=== PATIENT | male | born 1960 | race Caucasian/White ===

== ENCOUNTER 2023-04-10 23:39 | Emergency (ER) | payer MEDICAID, SELFPAY ==
--- NOTE | ~2023-04-10 | CT_ITS ---
EXAMINATION: CT HEAD WITHOUT CONTRAST CLINICAL INFORMATION: Amnesia COMPARISON: None available. TECHNIQUE: Contiguous axial imaging was performed from the skull base to vertex without intravenous administration of contrast. This CT examination was performed using dose optimization techniques as appropriate, variously including the following: *Automated exposure control *Adjustment of mA and/or kV according to patient size (this includes techniques or standardized protocols for targeted exams where dose is matched to indication/reason for exam; i.e. extremities or head) *Use of iterative reconstruction technique DLP: 754 mGy-cm FINDINGS: There is no evidence of acute intracranial hemorrhage or territorial infarction. No abnormal mass-effect or midline shift is seen. Daniel to white matter differentiation is well preserved. No extra-axial fluid collections are identified. The ventricles are normal in size. Mild volume loss is noted. The osseous structures and soft tissues are normal. Small mucous retention cyst in the right maxillary sinus. Slight mucosal thickening of the frontal sinuses. The mastoid air cells are well-aerated. CT/CT head/brain wo IV con IMPRESSION: No acute intracranial pathology.
[2023-04-10 23:59] VITALS: BP 148/103; PULSE 107; RESP 20; TEMP 37; O2SAT 95; BMI 29.2
[2023-04-11] VITALS (10 sets, daily range): BP systolic 104–138; BP diastolic 68–97; PULSE 54–107; RESP 15–20; TEMP 36.6–37.3; O2SAT 94–97
[2023-04-11 00:46] LABS: Amphetamine Screen Urine Not Detected (Not Detect); Barbiturates, Urine Not Detected (Not Detect); Benzodiazepines Screen Urine Not Detected (Not Detect); Cannabinoid Screen Urine Not Detected (Not Detect); Cocaine Screen Urine POSITIVE (Not Detect); Fentanyl, urine Not Detected (Not Detect); Opiate Screen Urine Not Detected (Not Detect); Phencyclidine Screen Urine Not Detected (Not Detect)
--- NOTE | 2023-04-11 02:23 | ECG_ITS ---
Test Reason : CHEST PAIN Blood Pressure : / mmHG Vent. Rate : 067 BPM Atrial Rate : 067 BPM P-R Int : 190 ms QRS Dur : 092 ms QT Int : 428 ms P-R-T Axes : 074 029 025 degrees QTc Int : 452 ms Normal sinus rhythm Inferior infarct , age undetermined Abnormal ECG No previous ECGs available Referred By: Jasper Mercedes Electronically Signed By:Ulises Kent
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
[2023-04-11 02:53] LABS: Basophils Absolute Auto 0.1 X10*3/uL (0.0-0.2); Basophils Percent Auto 1.4 % (0-2); Eosinophils Absolute Auto 0.1 X10*3/uL (0.0-0.4); Eosinophils Percent Auto 2.5 % (0-4); Hemoglobin 14.8 g/dl (14.0-18.0); Imm Gran Abs Auto 0.02 X10*3/uL (0.00-0.03); Imm Gran Pct Auto 0.4 % (0.0-0.4); Lymphocytes Absolute Auto 1.9 X10*3/uL (1.2-4.9); Lymphocytes Percent Auto 33.9 % (20-40); MANUAL DIFF FLAG SCAN; Mean Corpuscular HGB Conc 35.2 g/dl (31.0-36.0); Mean Corpuscular Hemoglobin 31.7 pg (27.0-33.0); Mean Corpuscular Volume 89.9 fL (80.0-98.0); Mean Platelet Volume 9.4 fL (9.4-12.4); Monocytes Absolute Auto 0.7 X10*3/uL (0.1-1.2); Monocytes Percent Auto 13.1 % (2-11); Neutrophils Absolute Auto 2.7 x10*3/uL (2.0-8.3); Neutrophils Percent Auto 48.7 % (45-73); Platelet Count 230 X10*3/uL (160-400); Red Blood Count 4.67 X10*6/uL (4.60-5.80); Red Cell Distribution Width 12.1 % (11.0-16.0); SCAN SMEAR FLAG 1; White Blood Count 5.6 X10*3/uL (4.8-10.8)
[2023-04-11 03:10] LABS: Alanine Aminotransferase 192 U/L (0-40); Albumin Level 3.7 g/dL (3.5-5.0); Alkaline Phosphatase 91 U/L (39-117); Anion Gap 12 (12-20); Aspartate Amino Transferase 74 U/L (5-37); Bilirubin Direct 0.5 mg/dL (0.0-0.5); Bilirubin Total 1.1 mg/dL (0.0-1.0); Blood Urea Nitrogen 8 mg/dL (9-16); Carbon Dioxide 26 mmol/L (22-29); Chloride 103 mmol/L (96-108); Creatinine Clr Calc Pharmacy 108.6; Estimated Glomerular Filt Rate > 60; Glucose Random 175 mg/dL (60-115); Lipase 48 U/L (8-78); Potassium 2.9 mmol/L (3.3-5.1); Sodium 138 mmol/L (135-145); Total Protein 7.3 g/dL (6.5-8.0)
[2023-04-11 03:13] LABS: SLIDE REVIEW VERIFIED
[2023-04-11 03:21] LABS: Troponin-I High Sensitivity < 2.7 ng/L (<3.5-35.0)
[2023-04-11] MEDS: Potassium Chloride Packet 20 MEQ PACKET 40 MEQ PO (05:44)
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
[2023-04-11 13:08] LABS: Amphetamine Screen Urine Not Detected (Not Detect); Barbiturates, Urine Not Detected (Not Detect); Benzodiazepines Screen Urine Not Detected (Not Detect); Cannabinoid Screen Urine Not Detected (Not Detect); Cocaine Screen Urine POSITIVE (Not Detect); Fentanyl, urine POSITIVE (Not Detect); Opiate Screen Urine Not Detected (Not Detect); Phencyclidine Screen Urine Not Detected (Not Detect)
--- NOTE | 2023-04-11 16:03 | PC.NURSE ---
Care team requesting U/A be done prior to their evaluation, patient made aware and is attempting to give sample
[2023-04-11 16:52] LABS: Appearance Urine Clear; Bacteria Urine None Seen (None Seen); Color Urine Dark Yellow; Glucose Urine UA 100 mg/dL (Negative); Hyaline Casts Urine 0-2 /LPF (0-2); Leukocyte Esterase Urine Negative (Negative); Nitrite Urine Negative (Negative); RBC Urine 0-2 /HPF (0-2); Squamous Epithelial Cell Urine 0-2 /HPF (0-2); Urine Blood Negative (Negative); Urine Ketones Trace mg/dL (Negative); Urine Protein Trace mg/dL (Neg-Trace); WBC Urine 0-5 /HPF (0-5)
--- NOTE | 2023-04-11 19:29 | MHC.RECOVSUP ---
Met with pt in ED14 who is here for LAYNE. Pt informs he only does cocaine on occasion when he is seeing a specific girl. Pt reports IV cocaine use 4 times in the past month but does not like doing it and only does it so she will stay around, going on to say he never craves it and will not get it unless she is with him. T/W and pt discussed self care and harm reduction as well as the importance of therapy. Pt working with Audrey to get into PHP.
--- NOTE | 2023-04-11 19:32 | PC.NURSE ---
Assumed care of pt. Pt lying on stretcher, no acute distress at this time. VSS.
[2023-04-11] MEDS: Naloxone HCl Nasal TAKE HOME 4 MG SPRAY 8 MG NOSTRILALT (22:10)
[2023-04-11] MEDS: Potassium Bicarbonate/Cit AC 25 MEQ TABLET.EFF PO (23:21)
--- NOTE | 2023-04-12 08:49 | MHC.CARE ---
T/w filled out the [facility] form and faxed it along with the Care Assessment to Marysol Kwon at [phone]. Admissions Team will follow up with PHP to check on availability.
--- NOTE | 2023-04-13 09:01 | MHC.CARE ---
RAD team followed up with Marysol @[facility] to confirm that his referral was received. She stated that she called and and left a but has not received a call back as of yet. Referral is now completed.
== END 2023-04-12 00:02 | disposition home or self-care (01) ==
PROVIDERS: Emergency Medicine; Emergency Provider Emergency Medicine
DX: F19.10 Other psychoactive substance abuse, uncomplicated (principal); E87.6 Hypokalemia
CPT/HCPCS: 36415; 70450; 80048; 80076; 80307; 81001; 83690; 84484; 85025; 93005; 99285; S9485

== ENCOUNTER → 2023-04-11 02:23 | Outpatient (BNV) | payer MEDICAID, SELFPAY | PROVIDERS: Emergency Provider Emergency Medicine; Visit Provider Internal Medicine Cardiovascular Disease | DX: R94.31 Abnormal electrocardiogram [ECG] [EKG] (principal) | CPT/HCPCS: 93010 ==

== ENCOUNTER 2023-09-17 16:44 | Emergency (ER) | payer MEDICAID, SELFPAY ==
[2023-09-17 16:49] VITALS: BP 159/94; PULSE 72; RESP 18; TEMP 36.4; O2SAT 96; BMI 30.6
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
[2023-09-17 17:29] LABS: MANUAL DIFF FLAG NO
[2023-09-17 17:30] LABS: Basophils Percent Auto 0.9 % (0-2); Eosinophils Absolute Auto 0.1 X10*3/uL (0.0-0.4); Eosinophils Percent Auto 1.3 % (0-4); Hematocrit 44.1 % (42.0-52.0); Hemoglobin 15.6 g/dl (14.0-18.0); Imm Gran Abs Auto 0.01 X10*3/uL (0.00-0.03); Imm Gran Pct Auto 0.2 % (0.0-0.4); Lymphocytes Absolute Auto 2.4 X10*3/uL (1.2-4.9); Lymphocytes Percent Auto 52.7 % (20-40); Mean Corpuscular HGB Conc 35.4 g/dl (31.0-36.0); Mean Corpuscular Hemoglobin 31.1 pg (27.0-33.0); Mean Platelet Volume 9.4 fL (9.4-12.4); Monocytes Absolute Auto 0.5 X10*3/uL (0.1-1.2); Monocytes Percent Auto 9.9 % (2-11); Neutrophils Absolute Auto 1.6 x10*3/uL (2.0-8.3); Platelet Count 189 X10*3/uL (160-400); Red Blood Count 5.01 X10*6/uL (4.60-5.80); Red Cell Distribution Width 13.2 % (11.0-16.0); White Blood Count 4.6 X10*3/uL (4.8-10.8)
[2023-09-17 17:31] LABS: Appearance Urine Clear; Color Urine Yellow; Glucose Urine UA Negative (Negative); Leukocyte Esterase Urine Negative (Negative); Nitrite Urine Negative (Negative); PH 5.5 (5.0-9.0); Specific Gravity - Urine >= 1.030 (1.005-1.025); Urine Blood Negative (Negative); Urine Ketones Negative (Negative); Urine Protein Negative (Neg-Trace)
[2023-09-17] MEDS: metroNIDAZOLE 500 MG TABLET PO (17:37)
[2023-09-17] MEDS: Lidocaine HCl 1 % MPF 2 ML VIAL INFILTRATI (17:37)
[2023-09-17] MEDS: cefTRIAXone sodium 500 MG VIAL IM (17:37)
[2023-09-17] MEDS: Doxycycline Monohydrate 100 MG CAPSULE PO (17:37)
[2023-09-17 17:44] LABS: Alanine Aminotransferase 60 U/L (0-40); Alkaline Phosphatase 62 U/L (39-117); Anion Gap 13 (12-20); Aspartate Amino Transferase 32 U/L (5-37); Bilirubin Total 1.3 mg/dL (0.0-1.0); Blood Urea Nitrogen 10 mg/dL (9-16); Carbon Dioxide 25 mmol/L (22-29); Chloride 105 mmol/L (96-108); Creatinine Clr Calc Pharmacy 101.8; Estimated Glomerular Filt Rate > 60; Glucose Random 168 mg/dL (60-115); Magnesium 2.1 mg/dL (1.6-2.6); Potassium 3.9 mmol/L (3.3-5.1); Sodium 139 mmol/L (135-145); Total Protein 7.6 g/dL (6.5-8.0)
[2023-09-18 08:21] LABS: Syphilis Screen Nonreactive (Nonreactive)
[2023-09-18 11:29] LABS: CT PCR NOT DETECTED (Not Detect.); NG PCR NOT DETECTED (Not Detect.)
== END 2023-09-17 18:35 | disposition home or self-care (01) ==
PROVIDERS: Physician Assistant; Emergency Provider Emergency Medicine
DX: R10.2 Pelvic and perineal pain (principal); Z20.2 Contact with and (suspected) exposure to infections with a predominantly sexual mode of transmission
CPT/HCPCS: 0353U; 36415; 80053; 81003; 83735; 85025; 86780; 96372; 99282; 99284; J0696

== ENCOUNTER 2023-12-15 14:36 | Emergency (ER) | payer MEDICAID, SELFPAY ==
--- NOTE | ~2023-12-15 | XR_ITS ---
EXAMINATION: XR HAND/WRIST, RIGHT CLINICAL INFORMATION: IVD wound to dorsal hand COMPARISON: None TECHNIQUE: PA, lateral, and oblique views of the right hand and wrist. FINDINGS: The bones and soft tissues are normal. No fracture. Alignment is anatomic. Joint spaces are maintained. No erosions or soft tissue calcifications. XR/XR hand wrist RT IMPRESSION: Normal radiographs of the hand and wrist.
[2023-12-15 14:46] VITALS: BP 110/76; PULSE 60; RESP 20; TEMP 37.2; O2SAT 100; BMI 32.7
--- NOTE | 2023-12-15 14:51 | ED_ITS ---
HPI - General Adult General Chief complaint: Wound/Laceration Stated complaint: rt hand infection Time Seen by Provider: 12/15/23 17:17 Source: patient Mode of arrival: ambulatory Limitations: no limitations History of Present Illness HPI narrative: patient is a 63-year-old male who presents emergency department for evaluation of a wound to the right hand onset approximately 12 days ago after injecting cocaine into the area. He hats been eavaluated at [facility] for this, given silvadene cream without any improvement. Denies any additional skin wounds or lesions, fevers, chills, inability to move the hand / digits. Related Data Previous Rx's Medication Instructions Recorded doxycycline hyclate 100 mg tablet 100 mg PO BID 7 days #14 tabs 09/20/23 cephalexin 500 mg capsule 500 mg PO QID #27 caps 12/15/23 doxycycline hyclate 100 mg tablet 100 mg PO BID #13 tabs 12/15/23 Allergies Allergy/AdvReac Type Severity Reaction Status Date / Time Sulfa (Sulfonamide Allergy Unknown Verified 12/15/23 14:53 Antibiotics) Review of Systems 2 Review of Systems: Yes all other systems are reviewed and are negative [facility] Past Medical History Attestation statement: The following information was validated with the patient. Source: old records reviewed Social History Social History Alcohol intake: former Substance Use Type: Crack/Cocaine and IV Drugs Advance Directives: No Advance Directives Information Provided: No Physical Exam ED Vital Signs: Vital Signs - 24 hr 12/15/23 14:46 12/15/23 17:31 Temperature 98.9 F 98.6 F Pulse Rate 60 65 Respiratory Rate 20 20 Blood Pressure 110/76 126/67 Pulse Oximetry 100 98 Oxygen Delivery Method Room Air Room Air BMI result Body Mass Index 32.7 Appearance: Alert.?Oriented to person, place and time. No acute distress.?Normal affect. Neck: Normal inspection.? Neck supple.?? CVS: Heart sounds normal. Normal heart rate and rhythm.? Pulses normal.?? Respiratory: No respiratory distress.? Lung sounds clear to auscultation bilaterally?? Abdomen: Soft and non-tender. Normoactive bowel sounds. Skin: Skin warm and dry.? Normal skin color. right dorsal hand with 3 cm actively draining abscess and surrounding erythema, mild sloughing to the wound bed, similar scabbed smaller lesion approximately 1.5 cm 2 radial aspect of right 3rd digit Extremities: No lower extremity edema.? Neuro: Moves all extremities spontaneously. Sensation intact bilaterally. Ambulates with normal steady gait. Course Course Course Narrative: RME:?63 yo, ambidexterous, male here for eval of wounds to dorsal right hand x12 days after injecting cocaine. last used 3 days ago. states he was given velarde chip for this. denies fever, chills. denies other wounds. PE: 3 cm open wound w/ surrounding erythema noted to dorsal right hand and smaller wound noted to right 3rd digit. full ROM intact to right wrist and all digits. no streaking. Full HPI, ROS and PE to be performed by the primary ED provider. Medical Decision Making Medical Decision Making [facility] Narrative: Patient is a 63-year-old male who presents emergency department for evaluation of infection to the right dorsal hand as per HPI. Physical examination is consistent with an actively draining abscess with surrounding cellulitis and mild sloughing on the wound bed. Given history will treat with cephalexin and doxycycline and advised strict return precautions outpatient follow-up with PCP/[facility]. wound culture was obtained and sent to lab for culture. Advised against injecting any intravenous illicit substances as this may worsen the current infection. Reports he is up-to-date with tetanus vaccination. Extremities neurovascularly intact distally. No streaking to the arm. Afebrile without tachycardia, nontoxic in appearance, no leukocytosis. CMP reveals chronically elevated transaminases consistent with baseline otherwise unremarkable. XR is without acute osseous abnormality or retained foreign body. Differential Diagnosis Differential Diagnoses: The differential diagnosis associated with the presentation includes ( See narrative above) Admission/Observation Consideration of admission/observation: Escalation of care including admission/observation considered Lab Data [facility] Lab Attestation statement: I reviewed the patient's lab results. ( see narrative above) 12/15/23 15:10 12/15/23 15:10 Labs: Lab Results 12/15/23 Range/Units 15:10 WBC 5.5 (4.8-10.8) X10*3/uL RBC 4.52 L (4.60-5.80) X10*6/uL Hgb 14.4 (14.0-18.0) g/dl Hct 42.1 (42.0-52.0) % MCV 93.1 (80.0-98.0) fL MCH 31.9 (27.0-33.0) pg MCHC 34.2 (31.0-36.0) g/dl RDW 13.2 (11.0-16.0) % Plt Count 181 (160-400) X10*3/uL MPV 10.0 (9.4-12.4) fL Immature Gran % (Auto) 0.2 (0.0-0.4) % Neut % (Auto) 53.1 (45-73) % Lymph % (Auto) 34.6 (20-40) % [place] % (Auto) 9.2 (2-11) % Eos % (Auto) 2.4 (0-4) % Baso % (Auto) 0.5 (0-2) % Lymph # (Auto) 1.9 (1.2-4.9) X10*3/uL [place] # (Auto) 0.5 (0.1-1.2) X10*3/uL Eos # (Auto) 0.1 (0.0-0.4) X10*3/uL Baso # (Auto) 0.0 (0.0-0.2) X10*3/uL Abs Immat Gran (auto) 0.01 (0.00-0.03) X10*3/uL Absolute Neuts (auto) 2.9 (2.0-8.3) x10*3/uL Absolute Nucleated RBC 0.000 (0.0-0.012) X10*3/uL Nucleated RBC % (auto) 0.0 (0.0-0.2) /100WBC Sodium 139 (135-145) mmol/L Potassium 3.7 (3.3-5.1) mmol/L Chloride 108 (96-108) mmol/L Carbon Dioxide 22 (22-29) mmol/L Anion Gap 13 (12-20) BUN 8 L (9-16) mg/dL Creatinine 0.96 (0.5-1.4) mg/dL Estim Creat Clear Calc 90.3 Estimated GFR > 60 Random Glucose 209 H (60-115) mg/dL Calcium 9.1 (8.4-10.2) mg/dL Total Bilirubin 1.3 H (0.0-1.0) mg/dL AST 76 H (5-37) U/L ALT 105 H (0-40) U/L Alkaline Phosphatase 60 (39-117) U/L Total Protein 7.3 (6.5-8.0) g/dL Albumin 3.8 (3.5-5.0) g/dL Independent Interpretation I performed an independent interpretation of an: Plain X-Ray ( no osseous irregularity to suggest osteomyelitis, no retained foreign body) Radiology Impression Discussion of test interpretation with radiology: I have reviewed the radiologist's reading. Radiologist Impression: XR/XR hand wrist RT IMPRESSION: Normal radiographs of the hand and wrist. Prescription Management I considered prescription management with: Antibiotic Discharge Plan Discharge Clinical Impression: Abscess Patient Disposition: Home, Self-Care Instructions: Abscess Follow-up (ED) Prescriptions: New doxycycline hyclate 100 mg tablet 100 mg PO BID Qty: 13 0RF cephalexin 500 mg capsule 500 mg PO QID Qty: 27 0RF No Action doxycycline hyclate 100 mg tablet 100 mg PO BID 7 Days Qty: 14 0RF Referrals: Physician,Unknown J [Primary Care Provider] -
[2023-12-15 15:14] LABS: MANUAL DIFF FLAG NO
[2023-12-15 15:16] LABS: Basophils Percent Auto 0.5 % (0-2); Eosinophils Absolute Auto 0.1 X10*3/uL (0.0-0.4); Eosinophils Percent Auto 2.4 % (0-4); Hematocrit 42.1 % (42.0-52.0); Hemoglobin 14.4 g/dl (14.0-18.0); Imm Gran Abs Auto 0.01 X10*3/uL (0.00-0.03); Imm Gran Pct Auto 0.2 % (0.0-0.4); Lymphocytes Absolute Auto 1.9 X10*3/uL (1.2-4.9); Lymphocytes Percent Auto 34.6 % (20-40); Mean Corpuscular HGB Conc 34.2 g/dl (31.0-36.0); Mean Corpuscular Hemoglobin 31.9 pg (27.0-33.0); Mean Corpuscular Volume 93.1 fL (80.0-98.0); Monocytes Absolute Auto 0.5 X10*3/uL (0.1-1.2); Monocytes Percent Auto 9.2 % (2-11); Neutrophils Absolute Auto 2.9 x10*3/uL (2.0-8.3); Neutrophils Percent Auto 53.1 % (45-73); Platelet Count 181 X10*3/uL (160-400); Red Blood Count 4.52 X10*6/uL (4.60-5.80); Red Cell Distribution Width 13.2 % (11.0-16.0); White Blood Count 5.5 X10*3/uL (4.8-10.8)
[2023-12-15 15:34] LABS: Alanine Aminotransferase 105 U/L (0-40); Albumin Level 3.8 g/dL (3.5-5.0); Alkaline Phosphatase 60 U/L (39-117); Anion Gap 13 (12-20); Aspartate Amino Transferase 76 U/L (5-37); Bilirubin Total 1.3 mg/dL (0.0-1.0); Blood Urea Nitrogen 8 mg/dL (9-16); Calcium 9.1 mg/dL (8.4-10.2); Carbon Dioxide 22 mmol/L (22-29); Chloride 108 mmol/L (96-108); Creatinine Clr Calc Pharmacy 90.3; Estimated Glomerular Filt Rate > 60; Glucose Random 209 mg/dL (60-115); Potassium 3.7 mmol/L (3.3-5.1); Sodium 139 mmol/L (135-145); Total Protein 7.3 g/dL (6.5-8.0)
[2023-12-15 17:31] VITALS: BP 126/67; PULSE 65; RESP 20; TEMP 37; O2SAT 98
[2023-12-15] MEDS: cephALEXin 500 MG CAPSULE PO (18:40)
[2023-12-15] MEDS: Doxycycline Monohydrate 100 MG CAPSULE PO (18:41)
[2023-12-15 19:28] VITALS: BP 101/52; PULSE 62; RESP 18; TEMP 36.8; O2SAT 99
== END 2023-12-15 18:45 | disposition home or self-care (01) ==
PROVIDERS: Physician Assistant Medical; Emergency Provider Emergency Medicine
DX: L02.511 Cutaneous abscess of right hand (principal); M79.641 Pain in right hand; F14.10 Cocaine abuse, uncomplicated; Z79.899 Other long term (current) drug therapy
CPT/HCPCS: 36415; 73110; 73130; 80053; 85025; 87070; 87077; 87147; 87186; 87205; 99283

== ENCOUNTER 2025-09-08 14:17 | Emergency (ER) | payer MEDICAID, SELFPAY ==
[2025-09-08] VITALS (9 sets, daily range): BP systolic 111–164; BP diastolic 53–89; PULSE 44–68; RESP 13–19; TEMP 36.5–36.8; O2SAT 96–99; BMI 33.9
--- NOTE | 2025-09-08 | ECG_ITS ---
Test Reason : ADOLFO Blood Pressure : */* mmHG Vent. Rate : 43 BPM Atrial Rate : 43 BPM P-R Int : 148 ms QRS Dur : 90 ms QT Int : 492 ms P-R-T Axes : * 63 68 degrees QTcB Int : 415 ms Marked sinus bradycardia Abnormal ECG When compared with ECG of 11-Apr-2023 02:36, Vent. rate has decreased by 24 bpm Criteria for Inferior infarct are no longer Present Nonspecific T wave abnormality no longer evident in Inferior leads Referred By: Generic ED Physician Electronically Signed By: Ulises Kent
--- NOTE | ~2025-09-08 | CT_ITS ---
EXAMINATION: CT ABDOMEN PELVIS WITHOUT IV CONTRAST HISTORY: abdominal pain COMPARISON: There are no prior studies available for comparison. TECHNIQUE: CT scan of the abdomen and pelvis was performed without contrast using standard departmental protocol. Coronal and sagittal reformatted images were generated and reviewed. This CT exam was performed with one or more of the following dose reduction techniques: automated exposure control, adjustment of the mA and/or kV according to patient size, use of iterative reconstruction technique. DLP: 821 mGy-cm FINDINGS: LOWER CHEST: The visualized lung bases are clear. There is no pleural effusion. CARDIOVASCULATURE: The heart is normal in size. There is no pericardial effusion. LIVER: The liver is normal in size and contour. The liver has an unremarkable unenhanced appearance. GALLBLADDER / BILE DUCTS: The gallbladder is unremarkable. There is no intra or extrahepatic biliary ductal dilatation. SPLEEN: The spleen is normal in size and has an unremarkable unenhanced appearance. PANCREAS: The pancreas has an unremarkable unenhanced appearance. ADRENAL GLANDS: Unremarkable. KIDNEYS/RETROPERITONEUM: Mild right hydronephrosis and ureteral dilatation. Mild right perinephric and periureteral fat stranding. This is probably from a recently passed 3 mm stone now in the bladder. 1 cm low-attenuation lesion in the lateral mid right kidney and 1.5 cm low-attenuation lesion in the lower pole. These are difficult to accurately characterize but may represent cysts. The left kidney is normal. LYMPH NODES: Small portacaval lymph nodes and retroperitoneal lymph nodes. No enlarged lymph nodes. VASCULATURE: No dominant aortic aneurysm. MESENTERY/PERITONEUM: No free fluid. No masses. There is no free intraperitoneal gas. Right retroperitoneal fat stranding surrounding the right kidney and ureter described above. STOMACH: Normal SMALL BOWEL: The small bowel is normal in caliber. COLON: The colon is unremarkable. APPENDIX: Normal. URINARY BLADDER/PELVIC ORGANS: 3 mm calcification in the right side of the bladder near the right UVJ region probably representing a recently passed stone. Enlarged prostate gland measuring 4.4 x 5.7 cm in AP and transverse dimension. BONES / SOFT TISSUES: Degenerative changes of the spine. CT/CT abdomen pelvis wo IV con IMPRESSION: Mild right hydronephrosis and ureteral dilatation from a 3 mm recently passed stone now in the bladder. Slightly enlarged prostate gland. Several low attenuation right renal lesions difficult to accurately characterize measuring up to 1.5 cm. Follow-up renal ultrasound recommended. Electronically signed by: Pallavi Flynn MD 09/08/2025 04:45 PM [facility]
[2025-09-08 15:00] LABS: MANUAL DIFF FLAG NO
[2025-09-08 15:04] LABS: Hematocrit 48.7 % (42.0-52.0); Hemoglobin 16.4 g/dl (14.0-18.0); Imm Gran Abs Auto 0.03 X10*3/uL (0.00-0.03); Imm Gran Pct Auto 0.3 % (0.0-0.4); Lymphocytes Absolute Auto 1.8 X10*3/uL (1.2-4.9); Mean Corpuscular HGB Conc 33.7 g/dl (31.0-36.0); Mean Corpuscular Hemoglobin 30.6 pg (27.0-33.0); Mean Corpuscular Volume 90.9 fL (80.0-98.0); NRBC Abs Auto 0.000 X10*3/uL (0.0-0.012); NRBC Pct Auto 0.0 /100WBC (0.0-0.2); Platelet Count 254 X10*3/uL (160-400); Red Blood Count 5.36 X10*6/uL (4.60-5.80); White Blood Count 10.2 X10*3/uL (4.8-10.8)
[2025-09-08 15:22] LABS: Alanine Aminotransferase 34 U/L (0-40); Albumin Level 4.2 g/dL (3.5-5.0); Alkaline Phosphatase 92 U/L (39-117); Anion Gap 14 (12-20); Aspartate Amino Transferase 35 U/L (5-37); Blood Urea Nitrogen 12 mg/dL (9-16); Calcium 8.9 mg/dL (8.4-10.2); Carbon Dioxide 23 mmol/L (22-29); Chloride 108 mmol/L (96-108); Creatinine Clr Calc Pharmacy 92.7; Estimated Glomerular Filt Rate > 60; Lipase 56 U/L (8-78); Magnesium 2.0 mg/dL (1.6-2.6); Potassium 3.8 mmol/L (3.3-5.1); Sodium 141 mmol/L (135-145); Total Protein 7.6 g/dL (6.5-8.0)
[2025-09-08 15:29] LABS: Troponin-I High Sensitivity 2.8 ng/L (<3.5-35.0)
--- NOTE | 2025-09-08 15:30 | ED_ITS ---
HPI - General Adult General Chief complaint: Abdominal Pain Stated complaint: RLQ li n/v/d since 9am, hx of kidney stones Time Seen by Provider: 09/08/25 15:22 Source: patient Mode of arrival: ambulatory Limitations: no limitations History of Present Illness ED Provider: Dr. Rivera HPI narrative: This is a 64-year-old male presented hospital today for sudden onset of right lower quadrant pain radiates to his right flank. Patient is endorsing nausea and vomiting with this pain. He does have history of kidney stones in the past. He has history of appendectomy. Related Data Previous Rx's ?Medication ?Instructions ?Recorded doxycycline hyclate 100 mg tablet 100 mg PO BID 7 days #14 tabs 09/20/23 cephalexin 500 mg capsule 500 mg PO QID #27 caps 12/14 doxycycline hyclate 100 mg tablet 100 mg PO BID #13 ta bs 12/15/23 ondansetron 4 mg disintegrating 4 mg PO Q8H PRN nausea and 09/08/25 tablet vomiting #14 tabs oxycodone 5 mg tablet 5 mg PO Q6H PRN pain #14 tab s 09/08/25 tamsulosin 0.4 mg capsule 0.4 mg PO DAILY 14 days #14 caps 09/08/25 Allergies Allergy/AdvReac Type Severity Reaction Status Date / Time Sulfa (Sulfonamide Allergy Unknown Verified 09/08/25 14:35 Antibiotics) Review of Systems 2 Review of Systems: Pertinent review of systems as mentioned in HPI. All other system otherwise negative. [facility] Past Medical History [facility] Narrative: Medical history as mentioned in HPI Social History Social History Alcohol intake: former Smoked in Last 30 Days: No Use of substances other than those prescribed or required for medical reasons: No Substance Use Type: Crack/Cocaine and IV Drugs Advance Directives: No Advance Directives Information Provided: No Do you have a plan to hurt others: No Plan Physical Exam ED Vital Signs: Vital Signs - 24 hr 09/08/25 14:32 09/08/25 15:04 09/08/25 15:13 Temperature 98.0 F Pulse Rate 52 44 L Respiratory Rate 18 13 16 Blood Pressure 152/85 H 122/77 Pulse Oximetry 98 99 Oxygen Delivery Method Room Air Room Air Oxygen Flow Rate 09/08/25 15:45 09/08/25 16:51 09/08/25 16:53 Temperature Pulse Rate 49 L 55 Respiratory Rate 15 19 16 Blood Pressure 164/89 H 157/86 H Pulse Oximetry 98 98 Oxygen Delivery Method Room Air Room Air Oxygen Flow Rate 09/08/25 19:18 09/08/25 20:00 Temperature 97.7 F 98.3 F Pulse Rate 53 68 Respiratory Rate 17 13 Blood Pressure 118/84 111/53 L Pulse Oximetry 97 96 Oxygen Delivery Method Nasal Cannula Nasal Cannula Oxygen Flow Rate 2 2 BMI result Body Mass Index 33.9 Medications Administered Discontinued Medications Generic Name Dose Route Start Last Admin Trade Name Freq PRN Reason Stop Dose Admin Hydromorphone HCl 1 mg 09/08/25 16:24 09/08/25 16:51 Hydromorphone Hcl 1 Mg/Ml Syringe IVPUSH 09/08/25 16:25 1 mg ONCE ONE Administration Protocol Sodium Chloride 1,000 mls @ 999 mls/hr 09/08/25 15:15 09/08/25 16:52 Ns IV 09/08/25 16:15 Infused .Q1H1M TAMERA Infusion Famotidine 20 mg/ Sodium 52 mls @ 200 mls/hr 09/08/25 15:45 09/08/25 16:52 Chloride IV 09/08/25 16:00 Infused ONCE ONE Infusion Sodium Chloride 1,000 mls @ 999 mls/hr 09/08/25 18:45 09/08/25 20:01 Ns IV 09/08/25 19:45 Infused .Q1H1M TAMERA Infusion Ketorolac Tromethamine 15 mg 09/08/25 15:31 09/08/25 15:42 Ketorolac Tromethamine 15 Mg/Ml Vial IVPUSH 09/08/25 15:32 15 mg ONCE ONE Administration Morphine Sulfate 4 mg 09/08/25 15:04 09/08/25 15:13 Morphine Sulfate 4 Mg/Ml Cartridge IVPUSH 09/08/25 15:05 4 mg ONCE ONE Administration Protocol Ondansetron HCl 4 mg 09/08/25 15:04 09/08/25 15:13 Ondansetron Hcl 4 Mg/2 Ml Vial IVPUSH 09/08/25 15:05 4 mg ONCE ONE Administration Oxycodone HCl 5 mg 09/08/25 18:23 09/08/25 18:41 Oxycodone Hcl Immed Release 5 Mg Tablet PO 09/08/25 18:24 5 mg ONCE ONE Administration Tamsulosin HCl 0.4 mg 09/08/25 16:51 09/08/25 18:04 Tamsulosin Hcl 0.4 Mg Capsule PO 09/08/25 16:52 0.4 mg ONCE ONE Administration Medical Decision Making Medical Decision Making [facility] Narrative: 64-year-old male presented hospital today for evaluation of right-sided abdominal pain that started of a sudden with nausea and vomiting. Patient has also been having signs and some signs of diarrhea. CBC did not show any signs of leukocytosis. CMP did show hyperglycemia slight elevation of the bilirubin which is similar to his previous bilirubin level. CT imaging shows signs of 3 mm nephrolithiasis near the right UVJ. Shows that it may have been recently passed. Patient has been given some IV Toradol, IV morphine, IV Dilaudid, plan to give patient some p.o. oxycodone for further pain control IV Zofran was given. Tamsulosin was given to the patient as well. Bolus IV fluid was given to the patient. Patient's pain appears to be controlled. We will plan to discharge patient will oxycodone, Zofran, tamsulosin. And follow up with the Urology Clinic will be provided the patient. Patient will be discharged. Differential Diagnosis Differential Diagnoses: The differential diagnosis associated with the presentation includes Nephrolithiasis, cholecystitis, colitis, gastroenteritis Lab Data [facility] Lab Attestation statement: I reviewed the patient's lab results. 09/08/25 14:55 09/08/25 14:55 Labs: Lab Results 09/08/25 Range/Units 14:55 WBC 10.2 (4.8-10.8) X10*3/uL RBC 5.36 (4.60-5.80) X10*6/uL Hgb 16.4 (14.0-18.0) g/dl Hct 48.7 (42.0-52.0) % MCV 90.9 (80.0-98.0) fL MCH 30.6 (27.0-33.0) pg MCHC 33.7 (31.0-36.0) g/dl RDW 12.4 (11.0-16.0) % Plt Count 254 D (160-400) X10*3/uL MPV 9.8 (9.4-12.4) fL Immature Gran % (Auto) 0.3 (0.0-0.4) % Neut % (Auto) 75.5 H (45-73) % Lymph % (Auto) 17.4 L (20-40) % [place] % (Auto) 5.5 (2-11) % Eos % (Auto) 0.5 (0-4) % Baso % (Auto) 0.8 (0-2) % Lymph # (Auto) 1.8 (1.2-4.9) X10*3/uL [place] # (Auto) 0.6 (0.1-1.2) X10*3/uL Eos # (Auto) 0.1 (0.0-0.4) X10*3/uL Baso # (Auto) 0.1 (0.0-0.2) X10*3/uL Abs Immat Gran (auto) 0.03 (0.00-0.03) X10*3/uL Absolute Neuts (auto) 7.7 (2.0-8.3) x10*3/uL Absolute Nucleated RBC 0.000 (0.0-0.012) X10*3/uL Nucleated RBC % (auto) 0.0 (0.0-0.2) /100WBC Sodium 141 (135-145) mmol/L Potassium 3.8 (3.3-5.1) mmol/L Chloride 108 (96-108) mmol/L Carbon Dioxide 23 (22-29) mmol/L Anion Gap 14 (12-20) BUN 12 (9-16) mg/dL Creatinine 1.06 (0.5-1.4) mg/dL Estim Creat Clear Calc 92.7 Estimated GFR > 60 Random Glucose 188 H (60-115) mg/dL Calcium 8.9 (8.4-10.2) mg/dL Magnesium 2.0 (1.6-2.6) mg/dL Total Bilirubin 1.2 H (0.0-1.0) mg/dL AST 35 (5-37) U/L ALT 34 (0-40) U/L Alkaline Phosphatase 92 (39-117) U/L Troponin I High Sens 2.8 (<3.5-35.0) ng/L Total Protein 7.6 (6.5-8.0) g/dL Albumin 4.2 (3.5-5.0) g/dL Lipase 56 (8-78) U/L Independent Interpretation I performed an independent interpretation of an: CT Scan Radiology Impression Discussion of test interpretation with radiology: I have reviewed the radiologist's reading. Discharge Plan Discharge Clinical Impression: Nephrolithiasis Patient Disposition: Home, Self-Care Instructions: Kidney Stones (ED) Prescriptions: New tamsulosin 0.4 mg capsule 0.4 mg PO DAILY 14 Days Qty: 14 0RF ondansetron 4 mg tablet,disintegrating 4 mg PO Q8H PRN (Reason: nausea and vomiting) Qty: 14 0RF oxycodone 5 mg tablet 5 mg PO Q6H PRN (Reason: pain) Qty: 14 0RF Rx Instructions: Partial Fill upon patient request. No Action doxycycline hyclate 100 mg tablet 100 mg PO BID 7 Days Qty: 14 0RF doxycycline hyclate 100 mg tablet 100 mg PO BID Qty: 13 0RF cephalexin 500 mg capsule 500 mg PO QID Qty: 27 0RF Referrals: [facility] [Provider Group, Urology] Clinical Impression: Nephrolithiasis Print Language: [place]
--- NOTE | 2025-09-08 17:11 | PC.NURSE ---
patient oxygen noted to be low 80's - patient states he just received pain medications and is feeling much better. placed on 2L nasal cannula 97% at this time.
[2025-09-08] MEDS: oxyCODONE HCl Immed Release 5 MG TABLET PO (18:41)
--- OUTSIDE RECORDS SUMMARY | 2025-09-08 19:49 | XMS_ITS | Encounter Summary ---
Author Organization [facility] Address [address] [place] [address] Phone Care Team Providers Care Joint Filler Name Role Phone Misha Dumont Primary Care Provider [phone] Yvonne Parker COUPON AND BOND COLLECTION CLERK Unavailable teddy Mike Joseph NP Primary Care Provider [phone] Isabel Alvarez INFECTION PREVENTION SPECIALIST Unavailable [phone] Alexandra Arriaza MD Unavailable [phone] Encounter Details Date Type Department Care Team (Latest Contact Info) Description 08/14/2023 Transcribe Orders [facility] Phleb Cobb [address] [phone] April Hammer PA 10 [place] [address] Chronic hepatitis C without hepatic coma (Primary Dx) Social History Tobacco Use Types Packs/Day Years Used Date Smoking Tobacco: Never Assessed Education Answer Date Recorded Are you interested in more education? Not on jesus manuel e 01/19/2023 Are you concerned about learning? Not on file 01/19/2023 No 01/19/2023 No 01/19/2023 Digital Access Answer Date Recorded No 02/17/2023 No 02/17/2023 Reliable internet access at home? Not on file 02/17/2023 Device with a working camera? Not on file Sex and Gender Information Value Date Recorded Sex Assigned at Not on file Legal Sex Male 9:46 PM EDT Gender Identity Not on file Sexual Orientation Not on file documented as of this encounter Plan of Treatment Upcoming Encounters Date Type Department Care Team (Late st Contact Info) Description 11/10/2025 2:15 PM EST Office Visit [facility] [address] [place] [address] Unknown, Unknown, April Hightower PA-C [address] [address] [email or web address] documented as of this encounter Results * (ABNORMAL) Hepatitis C viral load (PCR) (08/14/2023 3:41 PM EST) Pathologist [facility] HCV RNA DETECT/QNT 202,000( A) Undetected IU/mL [facility] Comment: (NOTE) Result in log IU/mL is 5.31. ADDITIONAL INFORMATION The quantification range of this assay is 15 to 100,000,000 IU/mL (1.18 log to 8.00 log IU/mL). Testing was performed using the shai HCV test ([employer] with the shai 6800 System. Blood (Blood) 08/14/2023 3:4 1 PM EST 08/14/2023 3:49 PM EST us April [facility] BLOOD BKR ORDERABLES Fi nal Result [facility] [address] [place] [address] * (ABNORMAL) Hepatitis C genotyping (08/14/2023 3:41 PM EST) [facility] HCV GENOTYPE 1a(A) Undetected [facility] Comment: (NOTE) ADDITIONAL INFORMATION This test was performed using the Accera RealTime HCV Genotype II assay ([employer] [place], [place]). Blood (Blood) 08/14/2023 3:4 1 PM EST 08/14/2023 3:49 PM EST April [facility] NON CULTURE MICROBIOLOGY Fi nal Result Performing Organization Address City/[facility]/ZIP Co de Phone Number [facility] [address] [place] [address] * Hepatitis B surface antigen (08/14/2023 3:41 PM EST) HBV SURFACE ANTIGEN NON-REACTI VE NON-REACTI VE [facility] Blood 08/14/2023 3:41 PM EST 08/14/2023 3:48 PM EST [facility] BLOOD BKR ORDERABLES Fi nal Result Performing Organization Address [facility] Co de Phone Number [facility] [address] [place] [address] * Hepatitis B core antibody, IgM (08/14/2023 3:41 PM EST) Pathologist [facility] HEP B CORE IGM AB Negative Negative [facility] Comment:IgM anti-HBc not det ected. Does not exclude the possibility of exposure to or infection with HBV. Blood 08/14/2023 3:41 PM EST 08/14/2023 3:49 PM EST [facility] BLOOD BKR ORDERABLES Fi nal Result Performing Organization Address [facility]/ZIP Co de Phone Number [address] [address] * (ABNORMAL) Liver fibrosis test (08/14/2023 3:41 PM EST) Fibrosis score 0.54 [facility] Interpretation (Fibrosis) SEE NOTE [facility] Comment: (NOTE) moderate fibrosis Fibro Test Score (f) Metavir Score f>=0 and f<=0.21 : F0 (no fibrosis) f>0.21 and f<=0.27 : F0-F1 (no fibrosis) f>0.27 and f<=0.31 : F1 (minimal fibrosis) f>0.31 and f<=0.48 : F1-F2 (minimal fibrosis) f>0.48 and f<=0.58 : F2 (moderate fibrosis) f>0.58 and f<=0.72 : F3 (advanced fibrosis) f>0.72 and f<=0.74 : F3-F4 (advanced fibrosis) f>0.74 and f<=1.00 : F4 (severe fibrosis) HCV Fibrosis Grade F2 Q [facility] NECROINFLAMM SCORE 0.70 Q [facility] NECROINFLAMM GRADE A3 Q [facility] NECROINFLAMM INTERP SEE NOTE [facility] Comment: (NOTE) severe activity ActiTest Score (a) Metavir Score a>=0 and a<=0.17 : A0 (no activity) a>0.17 and a<=0.29 : A0-A1 (no activity) a>0.29 and a<=0.36 : A1 (minimal activity) a>0.36 and a<=0.52 : A1-A2 (minimal activity) a>0.52 and a<=0.60 : A2 (significant activity) a>0.60 and a<=0.62 : A2-A3 (significant activity) a>0.62 and a<=1.00 : A3 (severe activity) A2 Macroglobulin 189 106 - 279 mg/dL [facility] Haptoglobin 46 43 - 212 mg/dL [facility]/ [facility] Apolipoprotein A1 183(H) 94 - 176 mg/dL [facility] TOTAL BILIRUBIN 1.0 0.2 - 1.2 mg/dL [facility] GGT 94(H) 3 - 70 U/L [facility] ALT 113(H) 9 - 46 U/L [facility] Specimen/Product ID [id number] [facility]/ [facility] Comments (Chemistry) SEE NOTE [facility] Comment: (NOTE) The reliability of results is dependent on compliance with the preanalytical and analytical conditions recommended by [employer]. The tests have to be deferred for: acute hemolysis, acute hepatitis, acute inflammation, extra hepatic cholestasis. The advice of a specialist should be sought for interpretation in chronic hemolysis and Gilbert's syndrome. The test interpretation is not validated in liver transplant patients. Isolated extreme values of one of the components should lead to caution in interpreting the results. In case of discordance between a biopsy result and a test, it is recommended to seek the advice of a specialist. The causes of these discordances could be due to a flaw of the test or to a flaw in the biopsy: i.e. a liver biopsy has a 33% variability rate for one fibrosis stage. FibroTest is interpretable for chronic hepatitis B and C, alcoholic and non alcoholic steatosis. ActiTest is interpretable for chronic hepatitis B and C. The performance characteristics have been determined by [facility]. It has not been cleared or approved by the U.S. Food and Drug Administration. Performance characteristics refer to the analytical performance of the test. [employer], the associated logo, [employer]tec and all associated [employer] grier are the registered trademarks of [employer]. All third republican grier - (R) and (TM) - are the property of their respective owners. (C) 6827-2533 [employer]. All rights reserved. Blood 08/14/2023 3:41 PM EST 08/14/2023 3:50 PM EST us April [facility] BLOOD BKR ORDERABLES Fi nal Result b3 bio/[employer] [facility] [address] [place] [address], [facility] [phone] * (ABNORMAL) Comprehensive metabolic panel (08/14/2023 3:41 PM EST) SODIUM 137 133 - 146 mmol/L [facility] POTASSIUM 3.8 3.3 - 5.1 mmol/L [facility] CHLORIDE 101 96 - 108 mmol/L [facility] CO2 25 21 - 35 mmol/L [facility] BUN 13 6 - 19 mg/dL [facility] CREATININE 0.90 0.5 - 1.5 mg/dL [facility] GLUCOSE 94 70 - 99 mg/dL [facility] ALBUMIN 4.6 3.9 - 4.8 g/dL [facility] TOTAL PROTEIN 8.2(H) 6.5 - 8.0 g/dL [facility] CALCIUM 9.5 8.4 - 10.3 mg/dL [facility] ALKALINE PHOSPHATASE 85 39 - 117 U/L [facility] TOTAL BILIRUBIN 0.9 0.0 - 1.2 mg/dL [facility] AST 81(H) 0 - 37 U/L [facility] ALT 128(H) 0 - 40 U/L [facility] GLOBULIN 3.6 1 - 4.8 g/dL [facility] EGFR 97 >59 mL/min/1.7 3m2 [facility] Comment:Estimated glomerular filtration rate calculated using the CKD-EPI refit equation. ANION GAP 15 10 - 20 mmol/L [facility] Blood 08/14/2023 3:41 PM EST 08/14/2023 3:48 PM EST us April [facility] BLOOD BKR ORDERABLES Fi nal Result Performing Organization Address City/State/[facility] Co de Phone Number [address] [address] * (ABNORMAL) CBC and differential (08/14/2023 3:41 PM EST) WBC 5.60 4.00 - 11.00 K/uL [facility] RBC 5.68 3.90 - 5.69 M/uL [facility] HGB 17.6(H) 12.4 - 17.3 g/dL [facility] HCT 50.4 37.0 - 51.0 % [facility] PLT 275 140 - 430 K/uL [facility] MCV 88.7 78.0 - 97.0 fL [facility] MCH 31.0 25.0 - 33.0 pg [facility] MCHC 34.9 32.0 - 36.0 g/dL [facility] RDW 13.2 11.0 - 15.0 % [facility] MPV 10.0 8.4 - 12.8 fl [facility] DIFF METHOD Auto [facility] NEUTS 41.4(L) 43.0 - 75.0 % [facility] LYMPHS 45.4 18.2 - 47.4 % [facility] MONOS 9.5 4.00 - 11.00 % [facility] EOS 1.6 0.0 - 8.0 % [facility] BASOS 1.6 0.0 - 2.0 % [facility] Granulocytes, immature (%) 0.5 0.0 - 0.9 % [facility] ABSOLUTE NEUTS 2.32 1.80 - 7.70 K/uL [facility] ABSOLUTE LYMPHS 2.54 1.00 - 3.10 K/uL [facility] ABSOLUTE MONOS 0.53 0.20 - 0.80 K/uL [facility] ABSOLUTE EOS 0.09 0.00 - 0.80 K/uL [facility] ABSOLUTE BASOS 0.09 0.00 - 0.09 K/uL [facility] Granulocytes, immature 0.03 0.00 - 0.05 K/uL [facility] Blood 08/14/2023 3:41 PM EST 08/14/2023 3:48 PM EST us April [facility] BLOOD BKR ORDERABLES Fi nal Result Performing Organization Address City/State/[facility] Co de Phone Number [facility] [address] [place] [address] documented in this encounter Visit Diagnoses Diagnosis Chronic hepatitis C without hepatic coma- Primary documented in this encounter Care Teams Joint Filler Relationship Specialty Start Date End Date Misha Dumont PA [address] [place] [phone] [email or web address] PCP - General Unknown Provider Specialty 01/11/22 10/18/23 Mike Joseph NP [address] [place] [address] PCP - General Nurse Practitioner 10/19/23 Yvonne Parker LCSW [address] [place] [phone] [email or web address] Extraction Machine Operator 09/19/23 04/14/24 Isabel Alvarez CNP [address] [place] [address] [employer] Plus Concrete Grinder Operator Nurse Practitioner 07/28/24 Alexandra Arriaza MD [address] [place] [address] [email or web address] Insurance Assigned Provider 08/08/25 documented as of this encounter Additional Source Comments The information contained in this document represents components of the legal health record. It is not the complete legal health record.[facility]
--- OUTSIDE RECORDS SUMMARY | 2025-09-08 19:49 | XMS_ITS | Clinical Summary ---
Author Organization [facility] Address [address] [place] [address] Phone Care Team Providers Care Food Stylist Name Role Phone Mike Joseph NP Primary Care Provider [phone] Alexandra Arriaza MD Unavailable [phone] Active Problems No known active problems Encounters Date Type Department Care Team Description 08/24/2025 [facility] RISK SCORES SYSTEM GENERATED External System Generated Encounter [address] [place] [address] Unknown, MD Andrea 07/27/2025 [facility] RISK SCORES SYSTEM GENERATED External System Generated Encounter [address] [place] [address] Unknown, MD Andrea 06/22/2025 [facility] RISK SCORES SYSTEM GENERATED External System Generated Encounter [address] [place] [address] Unknown, UnknownMD from Last 3 Months Family History Relation Status Comments Brother 1 Alive Brother 2 Alive Father Maternal Grandfather Maternal Grandmother Mother Paternal Grandfather Paternal Grandmother Sister 1 Alive Sister 2 Alive Social History Tobacco Use Types Packs/Day Years Used Date Smoking Tobacco: Never Smokeless Tobacco: Never Tobacco Cessation:Counseling Given: No Comments:Pt never smoked. Alcohol Use Standard Drinks/Week Comments Not Currently 1 (1 standard drink = 0.6 oz pure alcohol) Pt reports he hasn't had a drink for months. Has one or two beers when he goes out . Education Answer Date Recorded Are you interested in more education? Not on jesus manuel e 01/19/2023 Are you concerned about learning? Not on file 01/19/2023 No 01/19/2023 No 01/19/2023 Digital Access Answer Date Recorded No 02/17/2023 No 02/17/2023 Reliable internet access at home? Not on file 02/17/2023 Device with a working camera? Not on file Education Answer Date Recorded What is the highest level of school you have completed or the highest degree you have received? Master's degree (e.g., MA, MS, Patrica, MEd, MILL FEEDER, CLAUDIA) 10/19/2023 Sex and Gender Information Value Date Recorded Sex Assigned at Not on file Legal Sex Male 9:46 PM EDT Gender Identity Not on file Sexual Orientation Not on file Occupation Industry Job Start Date Job End Date none Not on file Not on file Not on file Plan of Treatment Upcoming Encounters Date Type Department Care Team ([facility] Contact Info) Description 11/10/2025 2:15 PM EST Office Visit [facility] [address] [place] [address] Unknown, Unknown, April Hightower PA-C [address] [place] [address] [email or web address] Health Maintenance Due Date Last Done Comments HIV ONE-TIME SCREENING (18-65 YEARS) 12/11/1979 COLOGUARD 2006 COLONOSCOPY 2006 COLORECTAL CANCER SCREENING 2006 FIT TEST 2006 FOBT 2006 SIGMOIDOSCOPY 2006 VIRTUAL COLONOSCOPY 2006 PNEUMOCOCCAL VACCINES (50+ years) (1 of 1 - PCV) 12/11/2011 ZOSTER VACCINES (1 of 2) 12/11/2011 Adult Td,Tdap Booster 03/04/2024 03/04/2014 , 02/26/2006, 05/15/2001 DEPRESSION SCREENING 10/19/2024 10/19/2023, 10/19/19 24 INFLUENZA VACCINE (#1) 2025 COVID-19 VACCINE ( - season) 2025 LIPID PANEL 10/22/2028 10/22/2023, 09/25, 06/01/2023, Additional history exists RSV VACCINE (1 - 1-dose 75+ series) 2036 HEPATITIS C SCREENING Completed 08/14/2023 , 08/14/2023, 08/14/2023, Additional history exists SMOKING STATUS SCREENING (Once After 26 Yrs) Completed 10/19/2023 HEPATITIS A VACCINES Aged Out No long er eligible based on patient's age to complete this topic HIB VACCINES Aged Out No longer eligi ble based on patient's age to complete this topic MENINGOCOCCAL VACCINES (ACWY) Aged Out No longer eligible based on patient's age to complete this topic MENINGOCOCCAL VACCINES (B) Aged Out N o longer eligible based on patient's age to complete this topic Medical Devices Not on file Procedures Procedure Name Priority Date/Time Associated Diagnosis Comments HEPATITIS C VIRAL LOAD, PCR Routine 08/14/2023 3:41 PM EST Chronic hepatitis C without hepatic coma from Last 3 Months or Most Recently Relevant to Health Maintenance Results * (ABNORMAL) Hepatitis C viral load (PCR) (08/14/2023 3:41 PM EST) HCV RNA DETECT/QNT 000( A) Undetected IU/mL [facility] Comment: (NOTE) Result in log IU/mL is 5.31. ADDITIONAL INFORMATION The quantification range of this assay is 15 to 100,000,000 IU/mL (1.18 log to 8.00 log IU/mL). Testing was performed using the shai HCV test ([employer] with the shai Ontodia0 System. Blood (Blood) 08/14/2023 3:4 1 PM EST 08/14/2023 3:49 PM EST us April [facility] BLOOD BKR ORDERABLES Fi nal Result [facility] [address] [place] [address] from Last 3 Months or Most Recently Relevant to Health Maintenance Insurance [employer] [address] [place] [address] [place] [address] A[employer] [address] [address] [place] [address] [employer] Advance Directives For more information, please contact: [phone] (9AM - 5PM [facility], Sunday-Sunday) Healthcare Agents on File Name Relationship Healthcare Agent Relationshi p Communication Joshua Sin Other Other (no proxy form on file) Care Teams Food Stylist Relationship Specialty Start Date End Date Mike Joseph NP PCP - General Nurse Practitioner 10/19/23 Alexandra Arriaza MD [address] [place] [address] [email or web address] Insurance Assigned Provider 08/08/25 Additional Source Comments The information contained in this document represents components of the legal health record. It is not the complete legal health record.[facility]
--- OUTSIDE RECORDS SUMMARY | 2025-09-08 19:49 | XMS_ITS | Continuity of Care Document ---
Author Organization [facility] Address [address] [place], [place] Phone [phone] Care Team Providers Care Manager Of It Name Role Phone Misha Dumont Care Team Information Internet Architect U navailable DIAMANTE RHODES M.D. Care Team Information Rec eiver Unavailable Misha Dumont Primary Care Physician Unavailab le Problems Active Problems Provider Date Benign neoplasm of pituitary gland and craniopharyngeal duct Diamante Rhodes M.D. Onset: 06/22/2023 Type II diabetes mellitus uncontrolled Diamante Rhodes M.D. Onset: 06/22/2023 Erectile dysfunction Diamante Rhodes M.D. Ons et: 11/09/2020 Impotence Diamante Rhodes M.D. Onset: 1 11/14/2019 Impotence Diamante Rhodes M.D. Onset: 0 03/03/2020 Prediabetes Diamante Rhodes M.D. Onset: 0 11/28/2019 Impotence Diamante Rhodes M.D. Onset: 0 11/28/2019 Impotence Diamante Rhodes M.D. Onset: 0 10/10/2019 Impotence Diamante Rhodes M.D. Onset: 0 05/08/2019 Impotence Diamante Rhodes M.D. Onset: 0 04/11/2019 Social History Type Date Description Comments Sex Male Sex Unknown Allergies and adverse reactions Active Allergies Criticality Reaction Severity Comments Date Lactose Unable to assess criticality 04/11/2019 Sulfamoxole Unable to assess criticality 04/11/2019 Metformin Unable to assess criticality GI upset 11/03/2021 Mavyret Unable to assess criticality Gi upse t 09/24/2023 Medications Active Medications SIG Qnty Indications Order ing Provider Date Dexcom G7 SensorMisc apply to skin to read sugar [id number] 3units E11. Diamante Rhodes M.D. 08/07/2023 Freestyle Walkbasee Blood Glucose Monitoring SystemW/Device Kit use 1x a day to test bs 1units Diamante Rhodes M.D. 08/02/2023 Freestyle Lite TestStrips 1 strip to meter one time a day 100units E11. Diamante Rhodes M.D. 08/02/2023 Trulicity0.75mg/0.5 ML Solution Pen-Inject Inject 0.75 MG Subcutaneously Every Week 2units Nilson Rhodes M.D. 06/22/2023 Sxavapesh73ld Tablets 1 tab osmar 24hr period,prn 10tabs N52.9 Diamante Rhodes M.D. 10/10/[address] Take One Capsule By Mouth Daily Unknown Clonazepam0.5mg Tablets Take 2 Tablets By Mouth In The Morning And Take 1 Tablet In The Evening Unknown Vitamin [id number] Capsules take 1 capsule by mouth every day in the morning for dietary supplement Unknown Vitamin B-12 Tonnkiz169ags Tablets ?dose/d(ran out) Unknown Multivitamin Adults 50+Adlt 50+ Tablets 1/d Unknown 00 Doxycycline Szpfdpo126da Tablets Take 1 Tablet (100 MG) Orally 2 Times A Day For 7 Days Unknown Docusate Rxmdme741gw Capsules Take 1 Capsule By Mouth Every Day Mike Silva FNP Jgqwiwp03VG/Scoop Powder Take 17 G By Mouth Every Day as Needed Mike Silva FNP History Medications Ozempic (0.25 Or 0.5 MG/Dose)2mg/1.5ML Solution Pen-Inject 0.25 mg sub cutaneously every week n8gvjla then 0.5/week as tolerated 4.5ml R73.03 Diamante Rhodes M.D. 05/10/2022 - 08/02/2023 Metformin HCL DY058cm Tablets ER 24HR Take 3 Tablets By Mouth Daily 90tabs R73.03 Diamante Rhodes M.D. 11/28/2019 - 11/03/2021 Bupropion Hydrochloride ER (XL)300mg Tablets ER 24HR Take 1 Tablet By Mouth Every Day Unknown - 08/02/2023 Citalopram Fcqzxjjayuzp36uz Tablets Take 1 Tablet By Mouth Every Day Unknown - 04/11/2019 Kmaxzsarkpt578nz Tablets Take 1 Tablet B y Mouth Every Day Unknown - 11/03/2021 Citalopram Tzhflafzzfuh70jo Tablets Take 1 Tablet By Mouth Every Day Unknown - 11/28/2019 Vsgrcluhyvhi281zs Tablets Take 2 Tablets By Mouth For 1 Day Unknown - 04/11/2019 Prazosin HCL1mg Capsules Take 2 Capsules By Mouth Every Day AT Bedtime(not taking) Unknown - 11/03/2021 Doxycycline Mvfubvl327kz Capsules Take 1 Capsule By Mouth Twice A Day For 7 Days Unknown - 04/11/2019 Testosterone Booster qod Unknown - 11/28/[address] Lama Take 1 Capsule By Mouth Every Day Leonela Swenson NP - 08/02/2023 Glipizide ER2.5mg Tablets ER 24HR Take 1 Tablet By Mouth Every Day Unknown - 08/02/2023 Trazodone BBW38lg Tablets 1 Tablet By Mouth Daily AT Bedtime, Can Increase To 2 Tablet If Needed Unknown - 08/02/2023 Trazodone GNH72rw Tablets Take One To Two Tablets By Mouth AT Bedtime as Needed For Sleep Unknown - 10/26/2023 Qwqftiw88st Capsules Take 1 Capsule Every Day By Oral Route AT Dinner For 30 Days. Unknown - 10/26/2023 Phioafr445-59fc Tablets for HepC Andrea Gomez PA - 10/26/2023
--- NOTE | 2025-09-08 20:00 | PC.NURSE ---
pt eating and drinking at this time. denies n/v
== END 2025-09-08 20:23 | disposition home or self-care (01) ==
PROVIDERS: Emergency Provider Student in an Organized Health Care Education/Training Program; PCP Nurse Practitioner Family
DX: N20.0 Calculus of kidney (principal); Z87.442 Personal history of urinary calculi; Z79.899 Other long term (current) drug therapy
CPT/HCPCS: 36415; 74176; 80053; 83690; 83735; 84484; 85025; 93005; 96361; 96374; 96375; 99284; 99285; J1171; J1308; J1885; J2270; J2405

== ENCOUNTER → 2025-09-08 14:52 | Outpatient (BNV) | payer MEDICAID, SELFPAY | PROVIDERS: Emergency Provider Student in an Organized Health Care Education/Training Program; PCP Nurse Practitioner Family; Visit Provider Internal Medicine Cardiovascular Disease | DX: R00.1 Bradycardia, unspecified (principal) | CPT/HCPCS: 93010 ==

== ENCOUNTER → 2025-09-08 15:31 | Outpatient (BNV) | payer MEDICAID, SELFPAY | PROVIDERS: Emergency Provider Student in an Organized Health Care Education/Training Program; PCP Nurse Practitioner Family; Visit Provider Radiology Diagnostic Radiology | DX: N13.2 Hydronephrosis with renal and ureteral calculous obstruction (principal) | CPT/HCPCS: 74176 ==